=== PATIENT | female | born 1965 | race Two or more races ===

== ENCOUNTER → 2016-12-03 | Outpatient (CLI) | payer OTHER ==
[~2016-12-03] MED LIST: ARIP1TAB5 PO; ASPI-231 PO; BEN10T OR; BUPR-81 PO; BUTA-251 PO; CARI-277 PO; DIPH25CA66 PO; DULO1CAP3 PO; EMPA1TAB PO; GAB300C OR; HYDR-531 PO; HYDRX10T PO; INSLANTI SC; INSLISPI SC; METF-316 PO; METH18TA5 PO; METH750T3 PO; OMEP20CA5 PO; OXCA300T50 OR; PRAZ2CAP PO; SIMV-13 PO; VENL150C58 PO
[2016-12-03 09:18] LABS: Urine Bilirubin Negative (Negative); Urine Blood Negative /uL (Negative); Urine Color Yellow (Yellow); Urine Ketone Negative (Negative); Urine Nitrite Negative (Negative); Urine RBC 1 /hpf (0 - 4); Urine Squamous Epithelial Cell FEW /hpf (<5); Urine Urobilinogen Normal (Negative)
[2016-12-03 09:20] LABS: Basophils # (auto) 0 uL; Basophils % (auto) 0.6 % (0.0-2.0); Eosinophils # (auto) 0.1 uL; Eosinophils % (auto) 1.9 % (0.0-7.0); Hematocrit 39.4 % (36.0-46.0); Hemoglobin 12.4 g/dL (12.2-16.2); Lymphocytes # (auto) 2.3 uL; Lymphocytes % (auto) 39.3 % (10.0-50.0); Mean Corpuscular Hemoglobin 27.9 pg (28.0-32.0); Mean Corpuscular Hgb Conc. 31.6 g/dL (32.0-36.0); Mean Corpuscular Volume 88.4 fL (80.0-100.0); Mean Platelet Volume 8.9 fL (7.4-10.4); Monocytes # (auto) 0.4 uL; Monocytes % (auto) 6.4 % (0.0-12.0); Neutrophils % (auto) 51.8 % (37.0-80.0); Platelet Count (auto) 277 10^3/uL (140-450); Red Cell Distribution Width 13.4 % (11.6-16.0); Urine Glucose 4+ mg/dL (Normal); White Blood Cell 5.8 10^3/uL (4.4-10.8)
[2016-12-03 09:36] LABS: INR 0.96 (0.9-1.15); Partial Thromboplastin Time 26.1 sec (22.64-33.71); Prothrombin Time 9.9 sec (9.37-12.3)
[2016-12-03 11:33] LABS: Albumin 3.7 g/dL (3.4-5.0); BUN/Creatinine Ratio 17.9; Bilirubin, Total 0.2 mg/dL (0.2-1.0); Calcium 9.1 mg/dL (8.5-10.1); Potassium 4.3 mmol/L (3.5-5.1); Total Protein 7.5 g/dL (6.4-8.2)
== END | disposition home or self-care (01) ==
LOC: LAB 08:40
PROVIDERS: ATTEND Internal Medicine Gastroenterology
DX: Z01.812 Encounter for preprocedural laboratory examination (principal)
CPT/HCPCS: 36415; 80053; 81001; 85025; 85610; 85730

== ENCOUNTER 2016-12-07 08:22 | Day surgery (SDC) | payer OTHER ==
[~2016-12-07] VITALS: Ht 149.9 cm; Wt 57.6 kg
[2016-12-07] MEDS ORDERED: fentaNYL CITRATE 100 MCG/2 ML VL ONE (08:55)
[2016-12-07] MEDS ORDERED: MIDAZOLAM HCL 1MG/1ML-2 ML VIAL ONE (08:55)
[2016-12-07] MEDS ORDERED: PROPOFOL 10 MG/ML 20 ML IV ONE (08:56)
[2016-12-07] MEDS ORDERED: SUCCINYLCHOLINE CHLORIDE 20 MG/ML 10ML VIAL IV ONE (09:25)
[2016-12-07] MEDS ORDERED: ePHEDrine SULFATE 50 MG/ML AMP IV PRN (09:30)
[2016-12-07] MEDS ORDERED: hydrALAZINE HCL 20 MG/ML VL IV PRN (09:30)
[2016-12-07] MEDS ORDERED: ONDANSETRON HCL 4 MG/2 ML VIAL IV ONE (09:30)
[2016-12-07 09:50] VITALS: BP 111/69
[2016-12-07] MEDS ORDERED: fentaNYL CITRATE 100 MCG/2 ML VL IV ONE (10:00)
== END 2016-12-07 09:58 | disposition home or self-care (01) ==
LOC: GI 08:22
PROVIDERS: ATTEND Internal Medicine Gastroenterology
DX: Z12.11 Encounter for screening for malignant neoplasm of colon (principal); K64.8 Other hemorrhoids; E11.9 Type 2 diabetes mellitus without complications
CPT/HCPCS: 45378; 82962; J0330; J2250; J2704; J3010; J7030

== ENCOUNTER 2017-12-30 20:40 | Emergency (ER) | payer OTHER, MEDICAID ==
[~2017-12-30] VITALS: Ht 149.9 cm; Wt 68.0 kg
[~2017-12-30 20:40] MED LIST changes: -GAB300C OR; +GABA300C11 OR; -METF-316 PO; +METF-372 PO; -OMEP20CA5 PO; +OMEP20CA74 PO
[2017-12-30] MEDS ORDERED: EPINEPHrine HCL 1 MG/1 ML AMP SC ONE (21:00)
[2017-12-30] MEDS ORDERED: SODIUM CHLORIDE 0.9% 1,000 ML IV ONE (21:00)
[2017-12-30] MEDS ORDERED: diphenhdrAMINE HCL 50 MG/1 ML VL IV ONE (21:00)
[2017-12-30] MEDS ORDERED: methylPREDNISolone SOD SUCC 125 MG/2 ML VL IV ONE (21:00)
[2017-12-30 21:24] LABS: Basophils # (auto) 0.1 uL; Basophils % (auto) 0.6 % (0.0-2.0); Eosinophils # (auto) 0.2 uL; Eosinophils % (auto) 2.5 % (0.0-7.0); Hematocrit 36.8 % (36.0-46.0); Hemoglobin 12.2 g/dL (12.2-16.2); Lymphocytes # (auto) 2.8 uL; Lymphocytes % (auto) 35.7 % (10.0-50.0); Mean Corpuscular Hemoglobin 29.7 pg (28.0-32.0); Mean Corpuscular Hgb Conc. 33.1 g/dL (32.0-36.0); Mean Corpuscular Volume 89.7 fL (80.0-100.0); Monocytes # (auto) 0.5 uL; Monocytes % (auto) 5.8 % (0.0-12.0); Neutrophils # (auto) 4.3 uL; Neutrophils % (auto) 55.4 % (37.0-80.0); Platelet Count (auto) 235 10^3/uL (140-450); Red Cell Distribution Width 12.6 % (11.8-14.3); White Blood Cell 7.8 10^3/uL (4.4-10.8)
[2017-12-30 21:41] LABS: Albumin 3.4 g/dL (3.4-5.0); BUN/Creatinine Ratio 12.5; Calcium 8.1 mg/dL (8.5-10.1); Potassium 4.2 mmol/L (3.5-5.1)
[2017-12-30 21:42] LABS: Bilirubin, Total 0.1 mg/dL (0.2-1.0)
[2017-12-31 00:13] VITALS: BP 133/75
== END 2017-12-31 00:14 ==
LOC: ER 20:40
DX: T78.40XA Allergy, unspecified, initial encounter (principal); I10 Essential (primary) hypertension; E11.649 Type 2 diabetes mellitus with hypoglycemia without coma; E78.5 Hyperlipidemia, unspecified; R53.1 Weakness; Z79.4 Long term (current) use of insulin; Z79.82 Long term (current) use of aspirin
CPT/HCPCS: 36415; 72125; 80053; 82962; 85025; 96361; 96372; 96374; 96375; 99285; J0171; J1200; J2930; J7030

== ENCOUNTER → 2018-08-17 | Outpatient (CLI) | payer OTHER, MEDICAID ==
[2018-08-17 10:46] LABS: Follicle Stimulating Hormone 40.44 IU/L (SEE BELOW)
== END | disposition home or self-care (01) ==
LOC: LAB 09:16
PROVIDERS: ATTEND Obstetrics & Gynecology
DX: N95.1 Menopausal and female climacteric states (principal)
CPT/HCPCS: 36415; 83001; 83002; 84403; 84443

== ENCOUNTER → 2018-11-28 | Day surgery (SDC) | payer OTHER, MEDICAID ==
[2018-11-24 13:05] LABS: Urine Bacteria NONE SEEN /hpf (None Seen); Urine Blood Negative /uL (Negative); Urine Specific Gravity 1.019 (1.001-1.035); Urine WBC <1 /hpf (0 - 5)
[2018-11-24 13:12] LABS: Basophils # (auto) 0 uL; Basophils % (auto) 0.5 % (0.0-2.0); Eosinophils # (auto) 0.2 uL; Hematocrit 36.9 % (36.0-46.0); Hemoglobin 12.6 g/dL (12.2-16.2); Lymphocytes # (auto) 2.2 uL; Lymphocytes % (auto) 27.9 % (10.0-50.0); Mean Corpuscular Volume 88.1 fL (80.0-100.0); Monocytes # (auto) 0.4 uL; Monocytes % (auto) 4.6 % (0.0-12.0); Neutrophils # (auto) 5.2 uL; Nucleated Red Blood Cells % 0.1 %; Platelet Count (auto) 208 10^3/uL (140-450); Red Blood Cells 4.19 10^6/uL (4.0-5.20); Red Cell Distribution Width 13.2 % (11.8-14.3)
[2018-11-24 13:26] LABS: INR 0.87 (0.9-1.15); Partial Thromboplastin Time 25.9 sec (23.78-33.04); Prothrombin Time 9.4 sec (9.27-12.13)
[2018-11-24 14:32] LABS: Albumin 3.4 g/dL (3.4-5.0); Calcium 8.6 mg/dL (8.5-10.1); Potassium 4.3 mmol/L (3.5-5.1)
[2018-11-24 14:34] LABS: Bilirubin, Total 0.2 mg/dL (0.2-1.0); Total Protein 7.6 g/dL (6.4-8.2)
[~2018-11-28] VITALS: Ht 149.9 cm; Wt 59.9 kg
[~2018-11-28] MED LIST changes: -BEN10T OR; -BUPR-81 PO; +BUPR75TA9 PO; -CARI-277 PO; -DULO1CAP3 PO; +DULO30CA PO; -EMPA1TAB PO; +EMPA1TAB3 PO; -HYDRX10T PO; -INSLANTI SC; -INSLISPI SC; +INSU1INJ19 SC; +LATA0.0015 EACHEYE; -METF-372 PO; -METH18TA5 PO; -METH750T3 PO; +MIDAZOLAM HCL 1MG/1ML-2 ML VIAL ONE; +ONDANSETRON HCL 4 MG/2 ML VIAL ONE; -OXCA300T50 OR; +PROPOFOL 10 MG/ML 20 ML IV ONE; +SODIUM CHLORIDE LOCK 10 ML ONE; +TEMA30CA PO; +TIZA4TAB9 PO; +TRIATAB3 PO; -VENL150C58 PO; +[UNRECOGNIZED DRUG - CODE] IN; +fentaNYL CITRATE 100 MCG/2 ML VL ONE
[2018-11-28 12:49] VITALS: BP 143/79
== END | disposition home or self-care (01) ==
LOC: GI 08:57
PROVIDERS: ATTEND Internal Medicine Gastroenterology
DX: K29.50 Unspecified chronic gastritis without bleeding (principal); K29.80 Duodenitis without bleeding; E66.9 Obesity, unspecified; M79.89 Other specified soft tissue disorders; F32.9 Major depressive disorder, single episode, unspecified; E11.40 Type 2 diabetes mellitus with diabetic neuropathy, unspecified; E78.5 Hyperlipidemia, unspecified; E11.22 Type 2 diabetes mellitus with diabetic chronic kidney disease; I12.9 Hypertensive chronic kidney disease with stage 1 through stage 4 chronic kidney disease, or unspecified chronic kidney disease; N18.9 Chronic kidney disease, unspecified; E11.36 Type 2 diabetes mellitus with diabetic cataract; E11.39 Type 2 diabetes mellitus with other diabetic ophthalmic complication; H42 Glaucoma in diseases classified elsewhere; Z87.891 Personal history of nicotine dependence; Z88.8 Allergy status to other drugs, medicaments and biological substances; Z98.890 Other specified postprocedural states
CPT/HCPCS: 36415; 43239; 80053; 81001; 82962; 85025; 85610; 85730; A6257; J2250; J2405; J2704; J3010; J7030

== ENCOUNTER → 2019-01-16 | Day surgery (SDC) | payer OTHER, MEDICAID ==
[2019-01-13 10:24] LABS: Basophils # (auto) 0 uL; Basophils % (auto) 0.7 % (0.0-2.0); Eosinophils # (auto) 0.2 uL; Eosinophils % (auto) 3.3 % (0.0-7.0); Hemoglobin 12.8 g/dL (12.2-16.2); Lymphocytes % (auto) 32.5 % (10.0-50.0); Mean Corpuscular Hemoglobin 28.9 pg (28.0-32.0); Mean Corpuscular Hgb Conc. 32.8 g/dL (32.0-36.0); Mean Corpuscular Volume 87.9 fL (80.0-100.0); Monocytes # (auto) 0.4 uL; Monocytes % (auto) 7.1 % (0.0-12.0); Neutrophils # (auto) 3.5 uL; Neutrophils % (auto) 56.4 % (37.0-80.0); Platelet Count (auto) 249 10^3/uL (140-450); Red Blood Cells 4.43 10^6/uL (4.0-5.20); Red Cell Distribution Width 13.3 % (11.8-14.3); White Blood Cell 6.2 10^3/uL (4.4-10.8)
[2019-01-13 10:44] LABS: Albumin 3.8 g/dL (3.4-5.0); BUN/Creatinine Ratio 17.1; Calcium 9.2 mg/dL (8.5-10.1); Potassium 4.2 mmol/L (3.5-5.1)
[2019-01-13 10:47] LABS: Bilirubin, Total 0.3 mg/dL (0.2-1.0); Total Protein 7.9 g/dL (6.4-8.2)
[2019-01-13 10:53] LABS: Urine Bacteria NONE SEEN /hpf (None Seen); Urine Blood Negative /uL (Negative); Urine Mucus FEW (None Seen); Urine Specific Gravity 1.028 (1.001-1.035); Urine WBC 1 /hpf (0 - 5)
[2019-01-13 11:15] LABS: INR 0.88 (0.9-1.15); Partial Thromboplastin Time 26.7 sec (23.78-33.04); Prothrombin Time 9.5 sec (9.27-12.13)
[~2019-01-16] VITALS: Ht 149.9 cm; Wt 61.7 kg
[~2019-01-16] MED LIST changes: +ACCU-CHEK COMFORT CURVE STRIP VI ONE; +AMIT10TA6 PO; +BUPR300T28 PO; -BUPR75TA9 PO; +CIPROFLOXACIN 400MG/200ML 200 ML IV ONE; +CONJ ESTROGENS 0.625MG/GM VAG CRM 30GM PV ONE; -DULO30CA PO; +DULO60CA PO; +HYDROmorphone HCL 2 MG/ML VL IV PRN; +INSU1INJ14 SC; -INSU1INJ19 SC; +IOHEXOL 300 MG/ML 100ML BOTTLE IJ ONE; +KETOROLAC TROMETH 30 MG/ML 1ML VIAL IV ONE; +LIDOCAINE 1% HCL (LOCAL ANESTH.) INJ 20ML MDV ONE; +LIDOCAINE HCL 2% TOP JELLY 5ML TOP ONE; +LIDOCAINE W/ EPINEPHRINE 1 % INJ 30ML ONE; +MAGN400C3 PO; +MEPERIDINE HCL (50 MG/ML) 1 ML VIAL ONE; +METOCLOPRAMIDE HCL 5MG/ml INJ 2ml VIAL IV ONE; +OLME1TAB21 PO; -OMEP20CA74 PO; +PANT40TA2 PO; -PRAZ2CAP PO; +PRAZ5CAP PO; +ROCURONIUM 10MG/ML 10ML VIAL IV ONE; +SEMA2INJ SC; +SUCCINYLCHOLINE CHLORIDE 20 MG/ML 10ML VIAL IV ONE; +TERB250T37 PO; +ceFAZolin 1GM VL ONE
[2019-01-16 09:55] VITALS: BP 123/83
== END | disposition home or self-care (01) ==
LOC: SUR 06:07
PROVIDERS: ATTEND Urology
DX: N39.46 Mixed incontinence (principal); Z79.82 Long term (current) use of aspirin; Z79.899 Other long term (current) drug therapy; I10 Essential (primary) hypertension; E78.5 Hyperlipidemia, unspecified; E11.9 Type 2 diabetes mellitus without complications; F32.9 Major depressive disorder, single episode, unspecified; M19.90 Unspecified osteoarthritis, unspecified site; Z98.890 Other specified postprocedural states; Z88.8 Allergy status to other drugs, medicaments and biological substances
CPT/HCPCS: 36415; 57288; 80053; 81001; 82962; 85025; 85610; 85730; 87086; C1763; C1769; J0330; J0690; J0744; J2001; J2175; J2250; J2405; J2704; J3010; J7030

== ENCOUNTER → 2019-08-16 | Outpatient (CLI) | payer OTHER, MEDICAID ==
[~2019-08-16] MED LIST changes: -ACCU-CHEK COMFORT CURVE STRIP VI ONE; -CIPROFLOXACIN 400MG/200ML 200 ML IV ONE; -CONJ ESTROGENS 0.625MG/GM VAG CRM 30GM PV ONE; -HYDROmorphone HCL 2 MG/ML VL IV PRN; -IOHEXOL 300 MG/ML 100ML BOTTLE IJ ONE; -KETOROLAC TROMETH 30 MG/ML 1ML VIAL IV ONE; -LIDOCAINE 1% HCL (LOCAL ANESTH.) INJ 20ML MDV ONE; -LIDOCAINE HCL 2% TOP JELLY 5ML TOP ONE; -LIDOCAINE W/ EPINEPHRINE 1 % INJ 30ML ONE; -MEPERIDINE HCL (50 MG/ML) 1 ML VIAL ONE; -METOCLOPRAMIDE HCL 5MG/ml INJ 2ml VIAL IV ONE; -MIDAZOLAM HCL 1MG/1ML-2 ML VIAL ONE; -ONDANSETRON HCL 4 MG/2 ML VIAL ONE; -PROPOFOL 10 MG/ML 20 ML IV ONE; -ROCURONIUM 10MG/ML 10ML VIAL IV ONE; -SODIUM CHLORIDE LOCK 10 ML ONE; -SUCCINYLCHOLINE CHLORIDE 20 MG/ML 10ML VIAL IV ONE; -ceFAZolin 1GM VL ONE; -fentaNYL CITRATE 100 MCG/2 ML VL ONE
== END | disposition home or self-care (01) ==
LOC: XY 07:10
PROVIDERS: ATTEND Internal Medicine Gastroenterology
DX: R14.2 Eructation (principal); R68.81 Early satiety; R19.8 Other specified symptoms and signs involving the digestive system and abdomen; R10.9 Unspecified abdominal pain; R11.2 Nausea with vomiting, unspecified
CPT/HCPCS: 78264; A9541

== ENCOUNTER → 2020-03-15 | Emergency (ER) | payer OTHER, MEDICAID ==
[~2020-03-15] VITALS: Ht 152.4 cm; Wt 59.0 kg
[~2020-03-15] MED LIST changes: +CLINDAMYCIN 600MG IV 0 ML IV ONE; +HYDROcodone-ACET 5/325MG TAB PO ONE; -LATA0.0015 EACHEYE; +LATA0.0019 EACHEYE
[2020-03-15 12:04] LABS: Urine Bacteria FEW /hpf (None Seen); Urine Blood Negative /uL (Negative); Urine Mucus FEW (None Seen); Urine Specific Gravity 1.007 (1.001-1.035); Urine WBC 4 /hpf (0 - 5)
[2020-03-15 14:09] LABS: Alcohol, Urine < 3.0 mg/dL (0-10); Amphetamine Screen, Urine NEGATIVE (NEGATIVE); Barbiturate Scree,Urine NEGATIVE (NEGATIVE); Benzodiazephine Screen, Urine NEGATIVE (NEGATIVE); Cannabinoid Screen, Urine NEGATIVE (NEGATIVE); Cocaine Screen, Urine NEGATIVE (NEGATIVE); Opiate Scree,Urine NEGATIVE (NEGATIVE); Phencyclidine Screen, Urine NEGATIVE (NEGATIVE)
[2020-03-15 14:45] VITALS: BP 152/78
== END | disposition home or self-care (01) ==
LOC: EDUNIT# 10:30 → ER 10:38 → EDBD 10:38
DX: S46.811A Strain of other muscles, fascia and tendons at shoulder and upper arm level, right arm, initial encounter (principal); I10 Essential (primary) hypertension; E11.9 Type 2 diabetes mellitus without complications; E78.5 Hyperlipidemia, unspecified; F32.9 Major depressive disorder, single episode, unspecified; F41.9 Anxiety disorder, unspecified; W22.8XXA Striking against or struck by other objects, initial encounter; Y93.89 Activity, other specified; Y92.89 Other specified places as the place of occurrence of the external cause; Y99.8 Other external cause status
CPT/HCPCS: 70450; 73030; 80307; 81001; 81025; 82962

== ENCOUNTER 2020-09-05 09:38 | Emergency (ER) | payer OTHER, MEDICAID ==
[~2020-09-05] VITALS: Ht 149.9 cm; Wt 63.5 kg
[~2020-09-05 09:38] MED LIST changes: -CLINDAMYCIN 600MG IV 0 ML IV ONE; -HYDROcodone-ACET 5/325MG TAB PO ONE
[2020-09-05 09:42] VITALS: BP 141/52
[2020-09-05] MEDS ORDERED: HYDROcodone-ACET 5/325MG TAB PO ONE (11:30)
== END 2020-09-05 12:16 | disposition home or self-care (01) ==
LOC: ER 09:38
DX: S82.034A Nondisplaced transverse fracture of right patella, initial encounter for closed fracture (principal); S93.04XA Dislocation of right ankle joint, initial encounter; I10 Essential (primary) hypertension; E11.9 Type 2 diabetes mellitus without complications; E78.5 Hyperlipidemia, unspecified; Z79.899 Other long term (current) drug therapy; Z79.82 Long term (current) use of aspirin; Z88.8 Allergy status to other drugs, medicaments and biological substances; W18.11XA Fall from or off toilet without subsequent striking against object, initial encounter; Y93.E1 Activity, personal bathing and showering; Y92.091 Bathroom in other non-institutional residence as the place of occurrence of the external cause; Y99.8 Other external cause status
CPT/HCPCS: 29505; 73562; 73610

== ENCOUNTER 2021-04-01 23:04 | Emergency (ER) | payer OTHER, MEDICAID ==
[~2021-04-01] VITALS: Ht 149.9 cm; Wt 65.3 kg
[~2021-04-01 23:04] MED LIST changes: +TERB250T28 PO; -TERB250T37 PO
[2021-04-02 01:59] LABS: Basophils # (auto) 0.1 10 ^3/uL (0-0.2); Basophils % (auto) 0.7 % (0.0-2.0); Eosinophils # (auto) 0.2 10 ^3/uL (0-0.8); Eosinophils % (auto) 1.3 % (0.0-7.0); Lymphocytes # (auto) 2.3 10 ^3/uL (0.4-5.4); Lymphocytes % (auto) 18.7 % (10.0-50.0); Mean Corpuscular Hgb Conc. 34.1 g/dL (32.0-36.0); Mean Corpuscular Volume 85.1 fL (80.0-100.0); Monocytes # (auto) 0.6 10 ^3/uL (0-1.3); Monocytes % (auto) 5.3 % (0.0-12.0); Nucleated Red Blood Cells % 0.1 %; Platelet Count (auto) 352 10^3/uL (140-450); Red Blood Cells 4.82 10^6/uL (4.0-5.20); Red Cell Distribution Width 13.1 % (11.8-14.3); White Blood Cell 12.2 10^3/uL (4.4-10.8)
[2021-04-02 02:12] LABS: Albumin 3.8 g/dL (3.4-5.0); BUN/Creatinine Ratio 12.1; Calcium 9.1 mg/dL (8.5-10.1); Potassium 3.4 mmol/L (3.5-5.1)
[2021-04-02 02:14] LABS: Bilirubin, Total 0.4 mg/dL (0.2-1.0); Total Protein 8.8 g/dL (6.4-8.2)
[2021-04-02 03:32] LABS: Urine Bacteria FEW /hpf (None Seen); Urine Blood Negative /uL (Negative); Urine Hyaline Cast FEW /lpf (0 - 2); Urine Mucus FEW (None Seen); Urine Specific Gravity 1.012 (1.001-1.035); Urine WBC 8 /hpf (0 - 5)
[2021-04-02 06:14] VITALS: BP 134/45
== END 2021-04-02 06:14 | disposition home or self-care (01) ==
LOC: ER 23:04
DX: I12.9 Hypertensive chronic kidney disease with stage 1 through stage 4 chronic kidney disease, or unspecified chronic kidney disease (principal); E11.22 Type 2 diabetes mellitus with diabetic chronic kidney disease; N18.9 Chronic kidney disease, unspecified; F41.9 Anxiety disorder, unspecified; F32.9 Major depressive disorder, single episode, unspecified; E78.5 Hyperlipidemia, unspecified; Z79.899 Other long term (current) drug therapy; Z79.82 Long term (current) use of aspirin; Z88.8 Allergy status to other drugs, medicaments and biological substances; Z91.040 Latex allergy status
CPT/HCPCS: 36415; 74176; 80053; 81001; 82150; 83690; 85025; 93005

== ENCOUNTER 2021-08-01 06:59 | Emergency (ER) | payer OTHER, MEDICAID ==
[~2021-08-01] VITALS: Ht 149.9 cm; Wt 61.7 kg
[~2021-08-01 06:59] MED LIST changes: -AMIT10TA6 PO; +AMIT1TAB34 PO; -ASPI-231 PO; +ASPI1TAB20 PO; -OLME1TAB21 PO; +OLME1TAB69 PO
[2021-08-01 07:30] VITALS: BP 140/90
== END 2021-08-01 08:10 | disposition home or self-care (01) ==
LOC: ER 06:59
DX: L03.031 Cellulitis of right toe (principal); E11.9 Type 2 diabetes mellitus without complications; I10 Essential (primary) hypertension; E78.5 Hyperlipidemia, unspecified; Z79.4 Long term (current) use of insulin; Z79.899 Other long term (current) drug therapy; Z88.8 Allergy status to other drugs, medicaments and biological substances; Z91.040 Latex allergy status

== ENCOUNTER 2025-06-29 08:37 | Inpatient (IN) | payer OTHER, MEDICAID ==
[~2025-06-29] VITALS: Ht 149.9 cm; Wt 67.1 kg
[~2025-06-29 08:37] MED LIST changes: +AMIT10TA12 PO; -AMIT1TAB34 PO; +ARIP10TA8 PO; -ARIP1TAB5 PO; +BUPR-581 PO; -BUPR300T28 PO; -DULO60CA PO; +DULO60CA41 PO; +GABA-1254 OR; -GABA300C11 OR; -LATA0.0019 EACHEYE; +LATA0.008 EACHEYE; -OLME1TAB69 PO; +OLME5TAB22 PO; -SIMV-13 PO; +SIMV40TA18 PO
--- NOTE | 2025-06-29 09:13 | ED.PDOC ---
Altered Mental Status HPI Comments 60 y.o female with PMHx of DM, HTN, HLD, depression and anxiety, presents to the ED with spouse, for an evaluation of altered mental status x 2 days. Spouse reports patient is not her usual self, is less responsive and her blood glucose levels have been dropping despite taking her medication. Spouse reports glucose level dropped severely low yesterday, tried giving patient juice but patient was confused and did not want to drink it. At bedside, patient is able to deny symptoms and state her name, but is unsure where she is, where she lives, and what time it is. No recent falls, head trauma, or recent complaint of chest pain, SOB, fever, chills. Chief Complaint: ALOC Time Seen by MD: 08:55 Primary Care Provider: RADHA Reviewed Notes: Nurses Notes, Medications, Allergies Allergies: Coded Allergies: Simvastatin (Verified Allergy, Severe, 09/05/20) Benazepril (Verified Allergy, Unknown, 09/05/20) Latex (Verified Allergy, Unknown, 09/05/20) Home Meds Reported Medications Olmesartan Medoxomil (Olmesartan Medoxomil) 5 Mg Tab, 2 TAB PO DAILY, TAB 01/13/19 Pantoprazole Sodium Sesquihydr (Protonix) 40 Mg Tab, 40 MG PO BID, #30 TAB 01/13/19 Magnesium Oxide (Mg Supplement (MAGNESIUM) 400 Mg Cap, 400 MG PO DAILY, CAP 01/13/19 Amitriptyline Hcl (Amitriptyline Hcl) 10 Mg Tab, 4 TAB PO HS for 30 Days, MG 0 Refills 01/13/19 Bupropion Hcl (Bupropion Hcl Xl) 300 Mg Tab, 300 MG PO DAILY, TAB 01/13/19 Prazosin Hcl (Minipress) 5 Mg Cap, 2 CAP PO HS, CAP 01/13/19 Duloxetine Hcl (Cymbalta) 60 Mg Cap, 2 CAP PO DAILY, #90 CAP 3 Refills 01/13/19 Terbinafine Hcl (Lamisil) 250 Mg Tab, 1 TAB PO DAILY, #30 TAB 1 Refill 01/13/19 Semaglutide (Ozempic) 2 Mg/1.5 Ml Inj, 0.25 MG SC QWEEKLY, INJ 01/13/19 Insulin Degludec (Tresiba Flextouch) 100 Unit/Ml Inj, 68 UNIT SC QAM, INJ 01/13/19 Latanoprost (LATANOPROST) 0.005 % Ling, 1 DROP EACHEYE QPM, #7.5 ML 3 Refills 11/24/18 Tizanidine Hydrochloride (Zanaflex) 4 Mg Tab, 1 TAB PO TID, #90 TAB 11/24/18 Temazepam (Temazepam) 30 Mg Cap, 1 CAP PO QPM, #30 CAP 1 Refill 11/24/18 Triamterene & Hydrochlorothiaz (Maxzide-25) Tab, 1 TAB PO DAILY, #30 TAB 5 Refills 11/24/18 Empagliflozin (Jardiance) 25 Mg Tab, 25 MG PO DAILY, TAB 11/24/18 Insulin Regular (Human) (Afrezza) 12 Unit Pow, 24 UNIT IN TID, POW 11/24/18 Simvastatin (Simvastatin) 40 Mg Tab, 1 TAB PO QPM, #30 TAB 5 Refills 12/03/16 Hydrocodone-Acetaminophen ([place] 10-325 mg) 1 Tab Tab, 1 TAB PO TID, TAB 12/03/16 Gabapentin (NEURONTIN CAPSULE) 300 Mg Cp, 600 MG OR QID, CP 12/03/16 Sudjvakdxp-Xyuvzfawouyft-Yyvra (Butalbital/Acetaminophen/ 50-325-40 mg) 1 Cap Cap, 1-4 CAP PO Q6HP PRN for PRN, CAP 12/03/16 Diphenhydramine Hcl (Benadryl Allergy) 25 Mg Cap, 4 CAP PO HS, #30 CAP 1 Refill 12/03/16 Aspirin (Aspir-81) 81 Mg Tab, 1 TAB PO DAILY, #30 TAB 5 Refills 12/03/16 Aripiprazole (Abilify) 10 Mg Tab, 10 MG PO DAILY, TAB 12/03/16 Information Source: Spouse Mode of Arrival: Ambulatory Severity: Moderate Timing: Days (2) Duration: Since onset Quality: Decreased Alertness, Change in Behavior, Confusion, Not Eating Recent: None History of: Diabetes, Hypoglycemia Associated Signs and Symptoms: None Past Medical History PAST MEDICAL HISTORY: Anxiety, Depression, DM, High Lipids, HTN Surgical History: Denies all surgeries GEOSPATIAL DEVELOPER History: Denies all GEOSPATIAL DEVELOPER Hx Family History Family History: Family hx of DM, Family hx of heart chente, Family hx of HTN Social History Smoker: Non-Smoker Alcohol: Denies ETOH Use Drugs: Denies Drug Use Lives In: Home Unable to Obtain due to: Altered Mental Status Physical Exam General Appearance: Moderate Distress HEENT: Normal ENT Inspection, Pharynx Normal, TMs Normal Neck: Full Range of Motion, Non-Tender, Normal, Normal Inspection Respiratory: Chest Non-Tender, Lungs Clear, No Accessory Muscle Use, No Respiratory Distress, Normal Breath Sounds Cardiovascular: No Edema, No JVD, No Murmur, No Gallop, Normal Peripheral Pulses, Regular Rate/Rhythm Breast Exam: Deferred Gastrointestinal: No Organomegaly, Non Tender, No Pulsatile Mass, Normal Bowel Sounds, Soft Genitalia: Deferred Pelvic: Deferred Rectal: Deferred Extremities: No calf tenderness, Normal range of motion, Non-tender, No pedal edema Musculoskeletal : Apperance: Normal Neurologic: Disoriented Cerebellar Function: NOT DONE Reflexes: NOT DONE Skin: Normal Color Peripheral Pulses: 3+ Radial (R), 3+ Radial (L) Lymphatic: No Adenopathy Was a procedure done? Was a procedure done?: No Differential Diagnosis (ALOC) Differential Diagnosis: Dehydration, Hypoglycemia, DKA, Hypoxemia, Closed Head Injury, Heart Failure, Renal Failure X-Ray, Labs, Meds, VS Vital Signs Date Time Temp Pulse Resp B/P (MAP) Pulse Ox O2 Delivery O2 Flow Rate FiO2 06/29/25 16:00 98.5 70 16 150/50 (83) 97 98.5 06/29/25 14:00 75 16 161/58 (92) 96 06/29/25 12:20 98.2 77 16 138/42 (74) 96 98.2 06/29/25 10:20 98 Room Air* 0 21 06/29/25 10:00 75 16 161/53 (89) 96 06/29/25 09:58 77 16 96 Room Air* 0 21 06/29/25 09:56 98.3 77 16 145/48 (80) 96 98.3 06/29/25 08:46 77 06/29/25 08:38 98.5 79 18 140/44 95 98.5 Lab Test 06/29/25 15:34 06/29/25 12:02 06/29/25 11:50 06/29/25 09:37 Range/Units POC Glucose 86 122 H 224 H 70-106 mg/dl Urine Color Light-yellow Yellow Urine Clarity Clear Clear Urine pH 8.0 5.0-9.0 Urine Specific [place] 1.019 1.001-1.035 Urine Protein Trace H Negative Urine Ketones 1+ H Negative Urine Blood Negative Negative /uL Urine Nitrite Negative Negative Urine Bilirubin Negative Negative Urine Urobilinogen Normal Negative mg/dL Urine Leukocyte Esterase Negative Negative /uL Urine RBC 1 0 - 4 /hpf Urine Microscopic WBC 1 0-5 /HPF Urine Squamous Epithelial Cells Few <5 /hpf Urine Bacteria None seen None Seen /hpf Urine Glucose 4+ H Normal mg/dL White Blood Count 13.3 H 4.4-10.8 10^3/uL Red Blood Count 4.73 4.0-5.20 10^6/uL Hemoglobin 14.2 12.2-16.2 g/dL Hematocrit 41.1 36.0-46.0 % Mean Corpuscular Volume 86.9 80.0-100.0 fL Mean Corpuscular Hemoglobin 30.0 28.0-32.0 pg Mean Corpuscular Hemoglobin Concent 34.6 32.0-36.0 g/dL Red Cell Distribution Width 14.4 H 11.8-14.3 % Platelet Count 281 140-450 10^3/uL Mean Platelet Volume 7.8 6.9-10.8 fL Neutrophils (%) (Auto) 83.5 H 37.0-80.0 % Lymphocytes (%) (Auto) 13.0 10.0-50.0 % Monocytes (%) (Auto) 2.7 0.0-12.0 % Eosinophils (%) (Auto) 0.0 0.0-7.0 % Basophils (%) (Auto) 0.8 0.0-2.0 % Neutrophils # (Auto) 11.1 H 1.6-8.6 10 ^3/uL Lymphocytes # (Auto) 1.7 0.4-5.4 10 ^3/uL Monocytes # (Auto) 0.4 0-1.3 10 ^3/uL Eosinophils # (Auto) 0 0-0.8 10 ^3/uL Basophils # (Auto) 0.1 0-0.2 10 ^3/uL Nucleated Red Blood Cells 0.0 % Sodium Level 141 136-145 mmol/L Potassium Level 3.6 3.5-5.1 mmol/L Chloride Level 99 98-107 mmol/L Carbon Dioxide Level 29 20-31 mmol/L Anion Gap 13 5-15 Blood Urea Nitrogen 15 9-23 mg/dL Creatinine 0.99 0.550-1.02 mg/dL Glomerular Filtration Rate Calc 65 >90 mL/min BUN/Creatinine Ratio 15.2 10.0-20.0 Serum Glucose 215 H 74-106 mg/dL Calcium Level 10.1 8.7-10.4 mg/dL Troponin I High Sensitivity < 3 L </=34 ng/L Current Medications Medications (Trade) Dose Ordered Sig/Coral Route Start Time Stop Time Status Last Admin Sodium Chloride 1,000 ml @ 1,000 mls/hr Q1H ONCE IV 06/29/25 09:15 06/29/25 10:14 DC 06/29/25 09:51 Patient alert to name only. Does not answering other questions. Vitals stable. Blood sugar elevated. Cardiac marker within normal limits. Establish intravenous access. Was given fluids. WBC elevated. Hemoglobin within normal limits. Blood pressure elevated. Continue monitoring. CT of the head reviewed does not show any acute changes. Chest x-ray reviewed does not show any acute changes. Time of 1ST Reevaluation: 09:09 Reevaluation 1ST: Unchanged Patient Education/Counseling: Other Family Education/Counseling: Diagnosis, Treatment, Prognosis SEPSIS Sepsis Screen Date sepsis recognized/suspect: Jun 29, 2025 Time Sepsis recognized/suspect: 837 Recent Procedure: No On Antibiotic Therapy: No Respiratory Rate >20: No Heart Rate >90: No Temp<36 C (96.8 F) or >38.3 C: No SBP <90 or MAP <65 mmHG: No New Acute Mental Status Change: Yes Is the patient on CPAP, BIPAP,: No Physician Orders Head Without Contrast (06/29/25 09:01) Chest Portable (06/29/25 09:01) Vital Signs Date Time Temp Pulse Resp B/P (MAP) Pulse Ox O2 Delivery O2 Flow Rate FiO2 06/29/25 16:00 98.5 70 16 150/50 (83) 97 98.5 06/29/25 14:00 75 16 161/58 (92) 96 06/29/25 12:20 98.2 77 16 138/42 (74) 96 98.2 06/29/25 10:20 98 Room Air* 0 21 06/29/25 10:00 75 16 161/53 (89) 96 06/29/25 09:58 77 16 96 Room Air* 0 21 06/29/25 09:56 98.3 77 16 145/48 (80) 96 98.3 06/29/25 08:46 77 06/29/25 08:38 98.5 79 18 140/44 95 98.5 Laboratory Tests Test 06/29/25 09:37 White Blood Count 13.3 10^3/uL (4.4-10.8) H Medications Medications Dose Ordered Sig/Coral Route Start Time Stop Time Status Last Admin Dose Admin Sodium Chloride 1,000 ml @ 1,000 mls/hr Q1H ONCE IV 06/29/25 09:15 06/29/25 10:14 DC 06/29/25 09:51 Departure 1 Departure Time of Disposition: 16:27 Impression: Primary Impression: Metabolic encephalopathy Additional Impression: Hypertensive urgency Disposition: ADMITTED INPATIENT Admit to: Med Surg Condition: Guarded Critical Care Note Critical Care Time?: Yes Stability Stability form required: No Heart Score Heart Score: Heart Score Response (Comments) Value History Slightly Suspicious 0 EKG Normal 0 Age <45 0 Risk Factors >3 or Hx ASHD 2 Troponin Normal limit 0 Total 2 I personally scribed for REDD SWANSON MD ([email or web address]) on 06/29/25 at 09:13. Electronically submitted by Tara Mello ([facility]). REDD SWANSON MD Jun 29, 2025 09:13
--- NOTE | 2025-06-29 09:41 | DVH ---
EXAM: CT HEAD WITHOUT CONTRAST INDICATION: altered TECHNIQUE: CT of the head without intravenous contrast. Coronal and sagittal reformatted images are s ubmitted. Radiation Dose : 1. Head: CT Dose: CTDI volume is 52.0 mGy. Dose-length product is 921.3 mGy*cm The dose indicators for CT are the volume Computed Tomography (CT) Dose Index (CTDIvol) and the Dose Length Product (DLP), and are measured in units of mGy and mGy-cm, respectively. These indicators are not patient dose, but values generated from the CT scanner acquisition factors. The report includes radiation exposure data for exposures received during this examination. All CT scans at this medical facility are performed using dose modulation techniques as appropriate to a performed exam including the following: Automated exposure control was utilized; adjustment of the MA and/or KV according to patient size; and use of iterative reconstruction technique. COMPARISON: None FINDINGS: There is no evidence of acute intracranial hemorrhage, extra-axial collection, mass effect, midline s hift, herniation or hydrocephalus. The ventricles, sulci and cisterns are age appropriate. The harrison-white differentiation is intact. Opacification of the left maxillary sinus. Mastoid air cells are clear. No depressed calvarial fracture. The surrounding soft tissues are unremarkable. IMPRESSION: 1. No evidence of acute intracranial abnormality.
--- NOTE | 2025-06-29 09:45 | DVH ---
XY CHEST PORTABLE, HISTORY: sob COMPARISON: None None TECHNICAL DATA: 1 view of the chest was obtained. FINDINGS: Lines and tubes: None Cardiomediastinal silhouette: normal Pulmonary vasculature: normal Lung expansion: normal Lung airspace: normal Lung interstitium: normal Pleura: normal Pneumothorax: no Bones: Unremarkable Other: no IMPRESSION: No acute intrathoracic abnormality.
[2025-06-29 09:48] LABS: Hematocrit 41.1 % (36.0-46.0); Hemoglobin 14.2 g/dL (12.2-16.2); Mean Corpuscular Hemoglobin 30.0 pg (28.0-32.0); Mean Corpuscular Volume 86.9 fL (80.0-100.0); Nucleated Red Blood Cells % 0.0 %
[2025-06-29] MEDS: SODIUM CHLORIDE 0.9% 1,000 ML IV ONE (09:51)
[2025-06-29 09:56] LABS: Chloride 99 mmol/L (98-107); Potassium 3.6 mmol/L (3.5-5.1); Sodium 141 mmol/L (136-145)
[2025-06-29 09:57] LABS: Anion Gap 13 (5-15); Carbon Dioxide 29 mmol/L (20-31)
[2025-06-29 09:58] VITALS: PULSE 77; RESP 16; O2SAT 96
[2025-06-29 09:58] LABS: Calcium 10.1 mg/dL (8.7-10.4)
[2025-06-29 10:02] LABS: BUN/Creatinine Ratio 15.2 (10.0-20.0); Blood Urea Nitrogen 15 mg/dL (9-23)
[2025-06-29 10:08] LABS: Glucose 215 mg/dL (74-106)
[2025-06-29 12:18] LABS: Urine Protein, UAD TRACE (Negative)
--- NOTE | 2025-06-29 17:18 | DVHHPRES ---
History of Present Illness Resident Creating Document: TADEO MCKENZIE RESIDENT History of Present Illness Dante Salcedo 60-year-old female with a complex medical history including type 2 diabetes mellitus with diabetic nephropathy, hypertension, hyperlipidemia, depression, anxiety and recurrent urinary tract infections, who presented to the ED with altered mental status. Her reports that she is typically alert and oriented, but he has experienced recurrent episodes of hypoglycemia in the past, usually managed at home with juice or glucagon. Earlier today she became acutely confused, prompting administration of glucagon with transient improvement. However her mental status subsequently worsened, leading to ED evaluation. Here, she is oriented to person and place but exhibits fluctuating mentation. She denies chest pain, dyspnea fever, abdominal pain, diarrhea or other acute complaint. There was no reported loss of consciousness. Her presentation raises concern for hypoglycemia related neuroglycopenia, though other etiologies such as infection, metabolic derangement or medication effects remain in the differential. Past medical history: Diabetes mellitus with nephropathy, anxiety, depression, hypertension, hyperlipidemia, recurrent UTIs Past surgical history: Work related injury to cervical spine and food followed by multiple surgeries. Uterine sling. Home medications: Triamterene, aripiprazole, losartan potassium, furosemide, at orvastatin, Lamictal, Vistaril, pregabalin, celecoxib, gabapentin, Percocet, mid the carbon wall, docusate sodium, duloxetine, cyclobenzaprine, omeprazole, quetiapine fumarate, Contraindicated medications according to Nephrology: Lamotrigine, lidocaine, magnesium Allergies: Benazepril, Latex, simvastatin Smoking: Smoked 7 years, quit 2 years Alcohol: Occasionally Drugs: Active marijuana use PCP: Dr. Andres, brand leader: Quality Control Inspector: Dr. Mays Code status: Review of Systems Neurological: Confusion Allergies: Coded Allergies: Simvastatin (Verified Allergy, Severe, 09/05/20) Benazepril (Verified Allergy, Unknown, 09/05/20) Latex (Verified Allergy, Unknown, 09/05/20) Exam Vital Signs Vital Signs Date Time Temp Pulse Resp B/P (MAP) Pulse Ox O2 Delivery O2 Flow Rate FiO2 06/29/25 14:00 75 16 161/58 (92) 96 06/29/25 12:20 98.2 98.2 06/29/25 10:20 Room Air* 0 21 Exam Pt is lying on bed General Appearance: Alert, Oriented X2, Cooperative, Mild distress HEENT: Atraumatic, Mucous membranes moist/pink Respiratory: Clear to auscultation, Normal air movement, No added sounds Cardiovascular: Regular rate, Normal S1, Normal S2, No murmurs Abdominal/ : Active bowel sounds, Soft, no distention, no tenderness Extremities: No edema, Normal pulses, No tenderness/swelling Skin: No significant rash, except past surgical scars ( left sided neck scar) Neuro: Normal speech, sensorimotor deficits none Psych/Mental Status: Mental status NL, Mood NL Nurse was there as agricultural labor camp manager during examination Labs/Xrays Labs Test 06/29/25 15:34 06/29/25 11:50 06/29/25 09:37 Range/Units POC Glucose 86 70-106 mg/dl Urine Color Light-yellow Yellow Urine Clarity Clear Clear Urine pH 8.0 5.0-9.0 Urine Specific [place] 1.019 1.001-1.035 Urine Protein Trace H Negative Urine Ketones 1+ H Negative Urine Blood Negative Negative /uL Urine Nitrite Negative Negative Urine Bilirubin Negative Negative Urine Urobilinogen Normal Negative mg/dL Urine Leukocyte Esterase Negative Negative /uL Urine RBC 1 0 - 4 /hpf Urine Microscopic WBC 1 0-5 /HPF Urine Squamous Epithelial Cells Few <5 /hpf Urine Bacteria None seen None Seen /hpf Urine Glucose 4+ H Normal mg/dL White Blood Count 13.3 H 4.4-10.8 10^3/uL Red Blood Count 4.73 4.0-5.20 10^6/uL Hemoglobin 14.2 12.2-16.2 g/dL Hematocrit 41.1 36.0-46.0 % Mean Corpuscular Volume 86.9 80.0-100.0 fL Mean Corpuscular Hemoglobin 30.0 28.0-32.0 pg Mean Corpuscular Hemoglobin Concent 34.6 32.0-36.0 g/dL Red Cell Distribution Width 14.4 H 11.8-14.3 % Platelet Count 281 140-450 10^3/uL Mean Platelet Volume 7.8 6.9-10.8 fL Neutrophils (%) (Auto) 83.5 H 37.0-80.0 % Lymphocytes (%) (Auto) 13.0 10.0-50.0 % Monocytes (%) (Auto) 2.7 0.0-12.0 % Eosinophils (%) (Auto) 0.0 0.0-7.0 % Basophils (%) (Auto) 0.8 0.0-2.0 % Neutrophils # (Auto) 11.1 H 1.6-8.6 10 ^3/uL Lymphocytes # (Auto) 1.7 0.4-5.4 10 ^3/uL Monocytes # (Auto) 0.4 0-1.3 10 ^3/uL Eosinophils # (Auto) 0 0-0.8 10 ^3/uL Basophils # (Auto) 0.1 0-0.2 10 ^3/uL Nucleated Red Blood Cells 0.0 % Sodium Level 141 136-145 mmol/L Potassium Level 3.6 3.5-5.1 mmol/L Chloride Level 99 98-107 mmol/L Carbon Dioxide Level 29 20-31 mmol/L Anion Gap 13 5-15 Blood Urea Nitrogen 15 9-23 mg/dL Creatinine 0.99 0.550-1.02 mg/dL Glomerular Filtration Rate Calc 65 >90 mL/min BUN/Creatinine Ratio 15.2 10.0-20.0 Serum Glucose 215 H 74-106 mg/dL Calcium Level 10.1 8.7-10.4 mg/dL Troponin I High Sensitivity < 3 L </=34 ng/L SEPSIS Sepsis Screen Date sepsis recognized/suspect: Jun 29, 2025 Time Sepsis recognized/suspect: 1004 Recent Procedure: No On Antibiotic Therapy: No Respiratory Rate >20: No Heart Rate >90: No Temp<36 C (96.8 F) or >38.3 C: No SBP <90 or MAP <65 mmHG: No New Acute Mental Status Change: No Is the patient on CPAP, BIPAP,: No Vital Signs Date Time Temp Pulse Resp B/P (MAP) Pulse Ox O2 Delivery O2 Flow Rate FiO2 06/29/25 14:00 75 16 161/58 (92) 96 06/29/25 12:20 98.2 77 16 138/42 (74) 96 98.2 06/29/25 10:20 98 Room Air* 0 21 06/29/25 10:00 75 16 161/53 (89) 96 06/29/25 09:58 77 16 96 Room Air* 0 21 06/29/25 09:56 98.3 77 16 145/48 (80) 96 98.3 Laboratory Tests Test 06/29/25 09:37 White Blood Count 13.3 10^3/uL (4.4-10.8) H Medications Medications Dose Ordered Sig/Coral Route Start Time Stop Time Status Last Admin Dose Admin Sodium Chloride 1,000 ml @ 1,000 mls/hr Q1H ONCE IV 06/29/25 09:15 06/29/25 10:14 DC 06/29/25 09:51 1,000 MLS/HR Assessment/Plan Assessment/Plan Toxic or metabolic encephalopathy Complicated UTIs Lactic acidosis IV fluid Injection meropenem IV Q 8 hours Glucose Accu-Cheks IV q.4 Lactic acid 2.3, downtrending. Now 1.[address]: Negative Chest x-ray: No acute findings Urinalysis: Unremarkable Urine culture ordered, results pending Ruled out ACS EKG: No ischemic changes Troponin 3 times negative Diabetes mellitus (HbA1c 6.7) Monitor blood glucose Anxiety, depression Continue home medications GI prophylaxis: Pantoprazole DVT prophylaxis: SCD Diet: Cardiac Goals of care discussed with the patient for more than 27 minutes: Full code status Case discussed with Dr. Ramos , patient and RN Plan discussed with: Patient, Spouse, Other Date of Service: Jun 29, 2025 Billing Provider: DEDE RAMOS MD Common Visit Codes: [id number] INP/OBS CARE (HIGH) TADEO MCKENZIE Jun 29, 2025 17:18 DEDE RAMOS MD Jun 30, 2025 21:45
--- NOTE | 2025-06-29 17:58 | ECG ---
[facility] Test Date: 2025-06-29 Test Time: 08:46:45 Pat Name: ELIJAH STERLING Department: ED Room: [address] [place] [address] Gender: F Plant Operator: BROOKE : 1965 Requested By: REDD SWANSON Order Number: [id number] Reading MD: Measurements Intervals [place] Rate: 77 P: 57 FL: 161 QRS: 41 QRSD: 87 T: 209 QT: 448 QTc: 508 Interpretive Statements Sinus rhythm Nonspecific T abnormalities, lateral leads Borderline prolonged QT interval Baseline wander in lead(s) V1,V2,V3,V4,V5,V6 Please click the below link to view image of tracing.
[2025-06-29] MEDS: SODIUM CHLORIDE 0.9% 1,000 ML IV SCH (19:26)
[2025-06-29 19:47] LABS: INR 1.03 (0.9-1.15); Partial Thromboplastin Time 27.4 SEC (24.5-34.5); Prothrombin Time 10.9 sec (9.3-11.8)
[2025-06-29 20:01] LABS: Amphetamine Screen, Urine Neg (NEGATIVE); Barbiturate Scree,Urine Neg (NEGATIVE); Cannabinoid Screen, Urine Pos (NEGATIVE); Cocaine Screen, Urine Neg (NEGATIVE); Opiate Scree,Urine Neg (NEGATIVE); Phencyclidine Screen, Urine Neg (NEGATIVE)
[2025-06-29 20:03] LABS: Lactic Acid w/Reflex 2.3 mmol/L (0.4-2.0)
[2025-06-29 21:29] LABS: Benzodiazephine Screen, Urine Neg (NEGATIVE)
[2025-06-29] MEDS: MEROPENEM 1GM IVPB 50 ML IV ONE (21:55)
[2025-06-29 22:24] LABS: COVID19 ANTIGEN SOFIA FIA NEGATIVE (NEGATIVE)
[2025-06-30 03:32] VITALS: BP 152/47; PULSE 70; RESP 18; TEMP 98.1; O2SAT 96
[2025-06-30 05:00] VITALS: BP 152/47; PULSE 70; RESP 18; TEMP 98.1; O2SAT 96
[2025-06-30] MEDS: MEROPENEM 1GM IVPB 50 ML IV SCH (05:41)
[2025-06-30] MEDS: ACCU-CHEK COMFORT CURVE STRIP VI SCH (05:46)
[2025-06-30 08:00] VITALS: PULSE 64; PULSE 67; RESP 18; O2SAT 96
[2025-06-30 08:16] LABS: Hematocrit 39.8 % (36.0-46.0); Hemoglobin 13.5 g/dL (12.2-16.2); Mean Corpuscular Hemoglobin 29.9 pg (28.0-32.0); Mean Corpuscular Volume 88.4 fL (80.0-100.0); Nucleated Red Blood Cells % 0.1 %
[2025-06-30 08:32] LABS: Alanine Aminotransferase 26 U/L (7-40); Albumin 4.5 g/dL (3.2-4.8); Anion Gap 13 (5-15); BUN/Creatinine Ratio 19.3 (10.0-20.0); Bilirubin, Total 0.7 mg/dL (0.2-1.0); Blood Urea Nitrogen 17 mg/dL (9-23); Calcium 9.2 mg/dL (8.7-10.4); Carbon Dioxide 26 mmol/L (20-31); Chloride 107 mmol/L (98-107); Glucose 96 mg/dL (74-106); Total Protein 7.7 g/dL (5.7-8.2)
[2025-06-30 08:39] LABS: Alkaline Phosphatase 126 U/L (46-116); Potassium 3.4 mmol/L (3.5-5.1); Sodium 146 mmol/L (136-145)
[2025-06-30] MEDS: PANTOPRAZOLE 40 MG/10 ML VIAL INJ IV SCH (09:35)
[2025-06-30 11:51] VITALS: BP 151/75; PULSE 65; RESP 18; TEMP 98.1; O2SAT 100
[2025-06-30] MEDS: POTASSIUM CHL 20 Meq TABLET PO ONE (12:10)
[2025-06-30 13:41] VITALS: BP 151/75; PULSE 65; RESP 18; TEMP 98.1; O2SAT 100
--- NOTE | 2025-06-30 16:22 | DVHDSRES ---
Discharge Summary Date of Admission Resident Creating Document: TADEO MCKENZIE Jun 29, 2025 at 17:19 Date of Discharge: Jun 30, 2025 Admitting Diagnosis Toxic and metabolic encephalopathy Labs/Diagnostic Data: Laboratory Results Test 06/30/25 09:51 06/30/25 07:53 06/29/25 21:40 06/29/25 21:27 POC Glucose 103 mg/dl (70-106) White Blood Count 9.1 10^3/uL (4.4-10.8) Red Blood Count 4.50 10^6/uL (4.0-5.20) Hemoglobin 13.5 g/dL (12.2-16.2) Hematocrit 39.8 % (36.0-46.0) Mean Corpuscular Volume 88.4 fL (80.0-100.0) Mean Corpuscular Hemoglobin 29.9 pg (28.0-32.0) Mean Corpuscular Hemoglobin Concent 33.9 g/dL (32.0-36.0) Red Cell Distribution Width 14.8 % (11.8-14.3) Platelet Count 263 10^3/uL (140-450) Mean Platelet Volume 8.1 fL (6.9-10.8) Neutrophils (%) (Auto) 70.3 % (37.0-80.0) Lymphocytes (%) (Auto) 23.1 % (10.0-50.0) Monocytes (%) (Auto) 5.7 % (0.0-12.0) Eosinophils (%) (Auto) 0.3 % (0.0-7.0) Basophils (%) (Auto) 0.6 % (0.0-2.0) Neutrophils # (Auto) 6.4 10 ^3/uL (1.6-8.6) Lymphocytes # (Auto) 2.1 10 ^3/uL (0.4-5.4) Monocytes # (Auto) 0.5 10 ^3/uL (0-1.3) Eosinophils # (Auto) 0 10 ^3/uL (0-0.8) Basophils # (Auto) 0.1 10 ^3/uL (0-0.2) Nucleated Red Blood Cells 0.1 % Sodium Level 146 mmol/L (136-145) Potassium Level 3.4 mmol/L (3.5-5.1) Chloride Level 107 mmol/L (98-107) Carbon Dioxide Level 26 mmol/L (20-31) Anion Gap 13 (5-15) Blood Urea Nitrogen 17 mg/dL (9-23) Creatinine 0.88 mg/dL (0.550-1.02) Glomerular Filtration Rate Calc 75 mL/min (>90) BUN/Creatinine Ratio 19.3 (10.0-20.0) Serum Glucose 96 mg/dL (74-106) Calcium Level 9.2 mg/dL (8.7-10.4) Total Bilirubin 0.7 mg/dL (0.2-1.0) Aspartate Amino Transferase (AST) 35 U/L (13-40) Alanine Aminotransferase (ALT) 26 U/L (7-40) Alkaline Phosphatase 126 U/L (46-116) Total Protein 7.7 g/dL (5.7-8.2) Albumin 4.5 g/dL (3.2-4.8) Influenza Type A Antigen Negative (Negative) Influenza Type B Antigen Negative (Negative) SARS-CoV-2 Antigen (Rapid) Negative (NEGATIVE) Lactic Acid Level 1.5 mmol/L (0.4-2.0) Test 06/29/25 19:18 06/29/25 11:50 06/29/25 09:37 Prothrombin Time 10.9 sec (9.3-11.8) Prothrombin Time INR 1.03 (0.9-1.15) Activated Partial Thromboplast Time 27.4 SEC (24.5-34.5) Hemoglobin A1c 6.7 % A1C (<5.7) Magnesium Level 2.4 mg/dL (1.6-2.6) Vitamin D 25-Hydroxy 38.7 ng/mL (30.0-100) Urine Color Light-yellow (Yellow) Urine Clarity Clear (Clear) Urine pH 8.0 (5.0-9.0) Urine Specific [place] 1.019 (1.001-1.035) Urine Protein Trace (Negative) Urine Ketones 1+ (Negative) Urine Blood Negative /uL (Negative) Urine Nitrite Negative (Negative) Urine Bilirubin Negative (Negative) Urine Urobilinogen Normal mg/dL (Negative) Urine Leukocyte Esterase Negative /uL (Negative) Urine RBC 1 /hpf (0 - 4) Urine Microscopic WBC 1 /HPF (0-5) Urine Squamous Epithelial Cells Few /hpf (<5) Urine Bacteria None seen /hpf (None Seen) Urine Glucose 4+ mg/dL (Normal) Urine Opiates Screen Neg (NEGATIVE) Urine Fentanyl Screen Neg (NEGATIVE) Urine Barbiturates Screen Neg (NEGATIVE) Urine Phencyclidine Screen Neg (NEGATIVE) Urine Amphetamines Screen Neg (NEGATIVE) Urine Benzodiazepines Screen Neg (NEGATIVE) Urine Cocaine Screen Neg (NEGATIVE) Urine Cannabinoids Screen Pos (NEGATIVE) Troponin I High Sensitivity < 3 ng/L (</=34) Other Laboratory Tests 06/30/25 07:53 Brief Hx & Hospital Course: Dante Salcedo 60-year-old female with a complex medical history including type 2 diabetes mellitus with diabetic nephropathy, hypertension, hyperlipidemia, depression, anxiety and recurrent urinary tract infections, who presented to the ED with altered mental status. Her reports that she is typically alert and oriented, but he has experienced recurrent episodes of hypoglycemia in the past, usually managed at home with juice or glucagon. Earlier today she became acutely confused, prompting administration of glucagon with transient improvement. However her mental status subsequently worsened, leading to ED evaluation. Here, she is oriented to person and place but exhibits fluctuating mentation. She denies chest pain, dyspnea fever, abdominal pain, diarrhea or other acute complaint. There was no reported loss of consciousness. Her presentation raises concern for hypoglycemia related neuroglycopenia, though other etiologies such as infection, metabolic derangement or medication effects remain in the differential. Past medical history: Diabetes mellitus with nephropathy, anxiety, depression, hypertension, hyperlipidemia, recurrent UTIs Past surgical history: Work related injury to cervical spine and food followed by multiple surgeries. Uterine sling. Home medications: Triamterene, aripiprazole, losartan potassium, furosemide, atorvastatin, Lamictal, Vistaril, pregabalin, celecoxib, gabapentin, Percocet, mid the carbon wall, docusate sodium, duloxetine, cyclobenzaprine, omeprazole, quetiapine fumarate, Contraindicated medications according to Nephrology: Lamotrigine, lidocaine, magnesium Allergies: Benazepril, Latex, simvastatin Smoking: Smoked 7 years, quit 2 years Alcohol: Occasionally Drugs: Active marijuana use PCP: Dr. Andres, emergency spill response technician: Dam Operator: Dr. Mays Patient toxic or metabolic encephalopathy was managed with IV fluid, glucose Accu-Cheks IV q.4 and she was given injection meropenem IV Q [address] and chest x-ray was normal. Urinalysis unremarkable , urine cultures pending. CS was ruled out by negative EKG and troponin 3 times negative. Initially present was oriented only in once beer, during the day of discharge patient was alert oriented and conversive, hemodynamically stable and was tolerating diet.. Verbalized understanding of the treatment plan and discharge. Patient was advised to follow up with her PCP and aircraft mechanic armament to adjust her insulin doses to prevent recurrent episodes of hypoglycemia. Outpatient follow- up for anxiety and depression and continue home medications for hypertension and diabetes mellitus was advised. Pt is lying on bed General Appearance: Alert, Oriented X2, Cooperative, Mild distress HEENT: Atraumatic, Mucous membranes moist/pink Respiratory: Clear to auscultation, Normal air movement, No added sounds Cardiovascular: Regular rate, Normal S1, Normal S2, No murmurs Abdominal/ : Active bowel sounds, Soft, no distention, no tenderness Extremities: No edema, Normal pulses, No tenderness/swelling Skin: No significant rash, except past surgical scars ( left sided neck scar) Neuro: Normal speech, sensorimotor deficits none Psych/Mental Status: Mental status NL, Mood NL Nurse was there as hypoid gear tester during examination Case discussed with Dr. Lopez, TANNER and patient. Operations or Procedures Head CT: Negative Chest x-ray: Normal Condition at Discharge: Stable Final Diagnosis/Problems List Toxic and metabolic encephalopathy Complicated UTIs Lactic acidosis Ruled out ACS Diabetes mellitus (HbA1c 6.7) Anxiety, depression Discharge Disposition: Home Discharge Instruct/Medications Diet: Consistent carbohydrate, Cardiac 2g Na,low cholest Activity: No Restrictions, As Tolerated Follow Up/Referral: Follow up with aircraft mechanic armament and PCP in 1 week Insulin dose adjustment with aircraft mechanic armament Medications: As per EMR Scheduled Amitriptyline Hcl (Amitriptyline Hcl), 4 TAB PO HS, (Reported) Aripiprazole (Abilify), 10 MG PO DAILY, (Reported) Aspirin (Aspir-81), 1 TAB PO DAILY, (Reported) Bupropion Hcl (Bupropion Hcl Xl), 300 MG PO DAILY, (Reported) Diphenhydramine Hcl (Benadryl Allergy), 4 CAP PO HS, (Reported) Duloxetine Hcl (Cymbalta), 2 CAP PO DAILY, (Reported) Empagliflozin (Jardiance), 25 MG PO DAILY, (Reported) Gabapentin (Neurontin Capsule), 600 MG OR QID, (Reported) Hydrocodone-Acetaminophen ([place] 10-325 mg), 1 TAB PO TID, (Reported) Insulin Degludec (Tresiba Flextouch), 68 UNIT SC QAM, (Reported) Insulin Regular (Human) (Afrezza), 24 UNIT IN TID, (Reported) Latanoprost (Latanoprost), 1 DROP EACHEYE QPM, (Reported) Magnesium Oxide (Mg Supplement (Magnesium), 400 MG PO DAILY, (Reported) Olmesartan Medoxomil (Olmesartan Medoxomil), 2 TAB PO DAILY, (Reported) Pantoprazole Sodium Sesquihydr (Protonix), 40 MG PO BID, (Reported) Prazosin Hcl (Minipress), 2 CAP PO HS, (Reported) Semaglutide (Ozempic), 0.25 MG SC QWEEKLY, (Reported) Simvastatin (Simvastatin), 1 TAB PO QPM, (Reported) Temazepam (Temazepam), 1 CAP PO QPM, (Reported) Terbinafine Hcl (Lamisil), 1 TAB PO DAILY, (Reported) Tizanidine Hydrochloride (Zanaflex), 1 TAB PO TID, (Reported) Triamterene & Hydrochlorothiaz (Maxzide-25), 1 TAB PO DAILY, (Reported) Scheduled PRN Ikjsnxktgm-Xjhbolztagvom-Homsk (Butalbital/Acetaminophen/ 50-325-40 mg), 1-4 CAP PO Q6HP PRN for PRN, (Reported) Discharge Statement: "Patient was advised to return to the ER or call 911 if any headaches, dizziness, shortness of breath, chest pain, abdominal pain, bleeding, fevers, or worsening of medical condition. Patient was counseled about treatment plan, medications, possible side effects, patientverbalized understanding. All questions were answered to the best of my ability. This discharge took greater then 30 minutes in planning, reviewing documentation, counseling the patient, and discussing with other team members." ASSESSMENT ASSESSMENT Assessment METABOLIC ENCEPHALOPATHY TADEO MCKENZIE Jun 30, 2025 16:22
== END 2025-06-30 15:00 | disposition home or self-care (01) | DRG 637 ==
LOC: ER 08:37 → OVERFLOW 17:19 → CENTRAL 06-30 03:20 → TELE-CENTR 06-30 06:59
PROVIDERS: ATTEND Emergency Medicine
DX: E11.649 Type 2 diabetes mellitus with hypoglycemia without coma (principal); G92.8 Other toxic encephalopathy; N39.0 Urinary tract infection, site not specified; E87.20 Acidosis, unspecified; F41.9 Anxiety disorder, unspecified; Z20.822 Contact with and (suspected) exposure to COVID-19; F32.A Depression, unspecified; E78.5 Hyperlipidemia, unspecified; I16.0 Hypertensive urgency; E11.21 Type 2 diabetes mellitus with diabetic nephropathy; Z82.49 Family history of ischemic heart disease and other diseases of the circulatory system; Z83.3 Family history of diabetes mellitus; Z79.4 Long term (current) use of insulin
CPT/HCPCS: 36415; 70450; 71045; 80048; 80053; 80307; 81001; 82306; 82607; 82962; 83036; 83605; 83735; 84484; 85025; 85610; 85730; 87426; 87804; 93005; 96365; G0378; J2185; J2470

== ENCOUNTER 2025-08-28 09:25 | Day surgery (SDC) | payer OTHER, MEDICAID ==
[2025-08-27 14:42] LABS: Hematocrit 38.4 % (36.0-46.0); Hemoglobin 12.9 g/dL (12.2-16.2); Mean Corpuscular Hemoglobin 29.4 pg (28.0-32.0); Mean Corpuscular Volume 87.7 fL (80.0-100.0); Nucleated Red Blood Cells % 0.0 %
[2025-08-27 14:53] LABS: INR 0.92 (0.9-1.15); Partial Thromboplastin Time 28.7 SEC (24.5-34.5); Prothrombin Time 9.8 sec (9.3-11.8)
[2025-08-27 14:57] LABS: Alanine Aminotransferase 30 U/L (7-40); Albumin 4.5 g/dL (3.2-4.8); Anion Gap 10 (5-15); BUN/Creatinine Ratio 12.3 (10.0-20.0); Blood Urea Nitrogen 14 mg/dL (9-23); Calcium 9.2 mg/dL (8.7-10.4); Chloride 98 mmol/L (98-107); Potassium 3.7 mmol/L (3.5-5.1); Sodium 141 mmol/L (136-145); Total Protein 7.6 g/dL (5.7-8.2)
[2025-08-27 14:58] LABS: Alkaline Phosphatase 148 U/L (46-116); Bilirubin, Total 0.3 mg/dL (0.2-1.0); Carbon Dioxide 33 mmol/L (20-31); Glucose 352 mg/dL (74-106)
[2025-08-27 16:46] LABS: Urine Protein, UAD Negative (Negative)
[~2025-08-28] VITALS: Ht 149.9 cm; Wt 62.6 kg
[~2025-08-28 09:25] MED LIST changes: -AMIT10TA12 PO; -ARIP10TA8 PO; +ARIP1TAB63 PO; -ASPI1TAB20 PO; +ATOR20TA50 PO; -BUPR-581 PO; -BUTA-251 PO; +CELE1CAP29 PO; +CYCL-839 PO; -DIPH25CA66 PO; +DOCU250C12 PO; -EMPA1TAB3 PO; +FURO20TA3 PO; -GABA-1254 OR; +GABA800T87 PO; +HYDR-3682 PO; -HYDR-531 PO; +HYDR25CA PO; +INSU100I49 SC; +LAM100T PO; +LOSA-533 PO; -MAGN400C3 PO; +METH-1182 PO; +MULT-733 OR; -OLME5TAB22 PO; +OMEP-434 PO; -PANT40TA2 PO; +PERCOT PO; -PRAZ5CAP PO; +PREG50CA PO; +QUET100T47 PO; -SEMA2INJ SC; -SIMV40TA18 PO; -TEMA30CA PO; -TERB250T28 PO; -TIZA4TAB9 PO; +TRAM-626 PO; -[UNRECOGNIZED DRUG - CODE] IN
--- NOTE | 2025-08-28 16:01 | DVHNC2 ---
Procedure - OPERATIVE REPORT Pre-op. Diagnosis: Stress Urinary Incontinence Intrinsic Sphincteric Deficiency s/p sling operation in 2019 Post-op. Diagnosis: Same as pre-op diagnosis Operation: Cystoscopy, Injection of Bulking Agent Fluoroscopy Anesthesia: General Indications: Patient has Stress Urinary Incontinence secondary to Intrinsic Sphincteric Deficiency. Indications, risks, complications, alternatives and benefits of cystoscopy with injection of bulking agent were discussed with patient. All questions were encouraged and answered. Patient is aware of specific risks/complications including but not limited to infection, bleeding, persistent urinary hematuria, urinary incontinence and urinary retention. Informed consent was obtained. Details of Procedure: Patient is taken to Operating suite and given appropriate anesthesia. After prepping and draping, the patient was placed in the lithotomy position. A 21 F rigid cystoscope was introduced and the bladder was emptied. Next, the scope was positioned in the urethra and injection of Coaptite (Bulking agent) at 4 thru 8 O'clock position using a long transurethral needle was performed. Fluoroscopy was utilized to confirm the proper placement of the radioopaque bulking agent. Coaptation of bladder neck was noted. Bladder was emptied. Patient tolerated the procedure well. Patient is awakened and taken to RR in stable condition. Specimens: None Complications: None Findings: Notes: DISPOSITION: Discharge to home after voided . RTC 2 weeks. Diagnosis: Visit Code: Procedure Codes: 12862 ENDOSCOPIC INJ IMPLANT. SIMONE MESSINA MD Aug 28, 2025 16:01
--- NOTE | 2025-08-28 16:02 | DVHDS2 ---
New Physician D'charge PN Admitting Diagnosis Admitting Diagnosis Urinary incontinence / ISD Discharge Diagnosis same Operations or Procedures Trans urethral injection of Coaptite Reason(s) For Hospitalization Surgery Treatment Plan Discharge Condition of Discharge Good Disposition Home Discharge Instructions Diet: Regular Activity: Light activity Activity comment: As tolerated Medications: Given Follow Up Care Follow Up/Referral: Two weeks Discharge Statement: "Patient was advised to return to the ER or call 911 if any headaches, dizz iness, shortness of breath, chest pain, abdominal pain, bleeding, fevers, or worsening of medical condition. Patient was counseled about treatment plan, medications, possible side effects, patientverbalized understanding. All questions were answered to the best of my ability. This discharge took greater then 30 minutes in planning, reviewing documentation, counseling the patient, and discussing with other team members." SIMONE MESSINA MD Aug 28, 2025 16:02
[2025-08-28] MEDS ORDERED: IOHEXOL 300 MG/ML 100ML BOTTLE IJ ONE (16:20)
[2025-08-28] MEDS: ceFAZolin 2 GM/D5W50ml 50 ML IV ONE (16:35)
[2025-08-28] MEDS ORDERED: MIDAZOLAM HCL 2MG/2ML 2ml VIAL (1mg/ml) ONE (16:37)
[2025-08-28] MEDS ORDERED: fentaNYL CITRATE 100 MCG/2 ML VL ONE (16:37)
[2025-08-28] MEDS ORDERED: HYDROmorphone HCL 2 MG/ML VL/or syr IV PRN (17:00)
[2025-08-28] MEDS ORDERED: MORPHINE SULFATE 4 MG/ML SYR/VIAL IV PRN (17:00)
[2025-08-28] MEDS ORDERED: hydrALAZINE HCL 20 MG/ML VL IV PRN (17:00)
[2025-08-28] MEDS ORDERED: ONDANSETRON HCL 4 MG/2 ML VIAL IV PRN (17:00)
[2025-08-28] MEDS ORDERED: MIDAZOLAM HCL 2MG/2ML 2ml VIAL (1mg/ml) IV PRN (17:00)
[2025-08-28] MEDS ORDERED: PROPOFOL 10 MG/ML 20 ML IV ONE (17:17)
[2025-08-28 17:25] VITALS: PULSE 62; RESP 12; TEMP 97.4
[2025-08-28 20:10] VITALS: BP 173/62; PULSE 75; RESP 12; O2SAT 97
--- NOTE | 2025-08-28 21:15 | DVH ---
C-ARM FLUOROSCOPY: PROCEDURE: C-arm fluoroscopy up to 60 minutes /bladder FLUOROSCOPY TIME: Total fluoro time 10.5 seconds Air Kerma: 0.92 mGy mgy FINDINGS: Spot intraoperative C arm radiographs demonstrating procedure in the bladder. IMPRESSION: 1. Please refer to surgical report for detailed findings.
--- NOTE | 2025-08-28 21:17 | DVH ---
Date: 08/28/2025 05:16 PM Examination: XY KUB ABDOMEN SINGLE VIEW History: INJECTION Comparison: None TECHNIQUE: Frontal views of the abdomen was obtained. Only dose summary sheet was received. No procedural images. FINDINGS: Total fluoro time 10.5 seconds Cumulative dose: 0.92 mGy IMPRESSION: 1. Further details please see operative report.
== END 2025-08-28 20:45 | disposition home or self-care (01) ==
LOC: SUR 09:25
PROVIDERS: ATTEND Urology
DX: N36.42 Intrinsic sphincter deficiency (ISD) (principal); N39.3 Stress incontinence (female) (male); E11.9 Type 2 diabetes mellitus without complications; F41.8 Other specified anxiety disorders; Z79.4 Long term (current) use of insulin; Z79.899 Other long term (current) drug therapy; Z98.890 Other specified postprocedural states; Z87.891 Personal history of nicotine dependence; Z88.8 Allergy status to other drugs, medicaments and biological substances; Z91.040 Latex allergy status
CPT/HCPCS: 36415; 51715; 74018; 80053; 81001; 82962; 85025; 85610; 85730; 87086; J0690; J1100; J2250; J2704; J3010; L8606; 76000